=== PATIENT | female | born 1940 | race Caucasian/White ===

== ENCOUNTER 2020-06-19 08:36 | Outpatient (REF) | payer OTHER, SELFPAY ==
[2020-06-19 11:24] LABS: Estimated Average Glucose 117 mg/dL; Hemoglobin A1C 148.9388 umol/L; Hemoglobin A1c % 5.7 %
[2020-06-19 11:27] LABS: Glucose Urine UA NEG (NEG); Leukocyte Esterase Urine 1+ (NEG); Nitrite Urine NEG (NEG); PH 5.5 (5.0-8.0); Specific Gravity - Urine 1.025 (1.005-1.025); Urine Blood TRACE (NEG); Urine Ketones NEG (NEG); Urine Protein NEG (NEG-TRACE)
[2020-06-19 11:33] LABS: Appearance Urine HAZY; Color Urine YELLOW
[2020-06-19 11:38] LABS: Alanine Aminotransferase 39 U/L (0-31); Albumin Level 3.9 g/dL (3.5-5.0); Alkaline Phosphatase 61 U/L (39-117); Anion Gap 13 (12-20); Aspartate Amino Transferase 39 U/L (5-31); Bilirubin Total 0.6 mg/dL (0.0-1.0); Blood Urea Nitrogen 11 mg/dL (9-16); Calcium 8.8 mg/dL (8.4-10.2); Carbon Dioxide 25 mmol/L (22-29); Chloride 110 mmol/L (96-108); Estimated Glomerular Filt Rate > 60; Glucose Fasting 103 mg/dL (60-99); Potassium 4.2 mmol/l (3.3-5.1); Sodium 144 mmol/L (135-145); Total Protein 7.1 g/dL (6.5-8.0)
[2020-06-19 12:05] LABS: Mucus Urine 3+ /LPF; Squamous Epithelial Cell Urine 3+ /LPF
== END 2020-06-19 08:37 | disposition home or self-care (01) ==
LOC: HO.HMGCLDS 08:36
PROVIDERS: PCP Internal Medicine; Visit Provider Internal Medicine
DX: R73.9 Hyperglycemia, unspecified (principal); E55.9 Vitamin D deficiency, unspecified; R94.5 Abnormal results of liver function studies
CPT/HCPCS: 36415; 80053; 81001; 83036

== ENCOUNTER 2020-12-21 09:01 | Outpatient (REF) | payer OTHER, SELFPAY ==
[2020-12-21 12:00] LABS: Estimated Average Glucose 117 mg/dL; Hemoglobin A1c % 5.7 %
[2020-12-21 12:22] LABS: Alanine Aminotransferase 30 U/L (0-31); Albumin Level 3.9 g/dL (3.5-5.0); Alkaline Phosphatase 71 U/L (39-117); Anion Gap 12 (12-20); Aspartate Amino Transferase 29 U/L (5-31); Bilirubin Total 0.7 mg/dL (0.0-1.0); Blood Urea Nitrogen 14 mg/dL (9-16); Calcium 9.2 mg/dL (8.4-10.2); Carbon Dioxide 29 mmol/L (22-29); Chloride 107 mmol/L (96-108); Cholesterol 147 mg/dL; Estimated Glomerular Filt Rate > 60; Glucose Fasting 109 mg/dL (60-99); HDL Cholesterol 44 mg/dL; LDL Cholesterol Calculated 93 mg/dl; Potassium 4.7 mmol/L (3.3-5.1); Sodium 143 mmol/L (135-145); Total Protein 7.2 g/dL (6.5-8.0); Triglycerides 52 mg/dL
[2020-12-21 12:46] LABS: Thyroid Stimulating Hormone 1.89 uIU/mL (0.32-4.0)
== END 2020-12-21 09:02 | disposition home or self-care (01) ==
LOC: HO.HMGCLDS 09:01
PROVIDERS: PCP Internal Medicine; Visit Provider Internal Medicine
DX: E66.9 Obesity, unspecified (principal); E78.5 Hyperlipidemia, unspecified; K76.0 Fatty (change of) liver, not elsewhere classified; R49.0 Dysphonia; R73.9 Hyperglycemia, unspecified
CPT/HCPCS: 36415; 80053; 80061; 83036; 84443

== ENCOUNTER 2021-01-03 15:13 | Outpatient (REF) | payer OTHER, SELFPAY ==
[2021-01-03 15:36] LABS: COVID-19 Test Negative (Negative)
== END 2021-01-03 15:14 | disposition home or self-care (01) ==
LOC: HO.LAB 15:13
PROVIDERS: Visit Provider Internal Medicine
DX: Z20.822 Contact with and (suspected) exposure to COVID-19 (principal)
CPT/HCPCS: 36415; 87635; C9803

== ENCOUNTER 2021-06-27 08:02 | Outpatient (REF) | payer MEDICARE, SELFPAY ==
[2021-06-27 11:34] LABS: Hematocrit 44.4 % (37-47); Hemoglobin 14.9 g/dl (12.0-16.0); Mean Corpuscular HGB Conc 33.6 g/dl (31.0-35.0); Mean Corpuscular Hemoglobin 30.5 pg (27.0-33.0); Mean Corpuscular Volume 90.8 fL (80-98); Mean Platelet Volume 10.1 fL (9.4-12.3); Platelet Count 187 X10*3/uL (160-400); Red Blood Count 4.89 X10*6/uL (4.20-5.50); Red Cell Distribution Width 12.2 % (11.0-16.0); White Blood Count 5.1 X10*3/uL (4.8-10.8)
[2021-06-27 11:51] LABS: Alanine Aminotransferase 32 U/L (0-31); Albumin Level 3.8 g/dL (3.5-5.0); Alkaline Phosphatase 65 U/L (39-117); Anion Gap 12 (12-20); Aspartate Amino Transferase 29 U/L (5-31); Bilirubin Total 0.7 mg/dL (0.0-1.0); Blood Urea Nitrogen 12 mg/dL (9-16); Calcium 9.2 mg/dL (8.4-10.2); Carbon Dioxide 28 mmol/L (22-29); Chloride 107 mmol/L (96-108); Estimated Glomerular Filt Rate > 60; Glucose Fasting 112 mg/dL (60-99); Potassium 4.5 mmol/L (3.3-5.1); Sodium 142 mmol/L (135-145); Total Protein 7.1 g/dL (6.5-8.0)
== END 2021-06-27 08:03 | disposition home or self-care (01) ==
LOC: HO.HMGCLDS 08:02
PROVIDERS: PCP Internal Medicine; Visit Provider Internal Medicine
DX: R73.9 Hyperglycemia, unspecified (principal); E66.9 Obesity, unspecified
CPT/HCPCS: 36415; 80053; 85027

== ENCOUNTER 2022-01-01 07:42 | Outpatient (REF) | payer MEDICARE, SELFPAY ==
[2022-01-01 12:06] LABS: Alanine Aminotransferase 35 U/L (0-31); Albumin Level 3.7 g/dL (3.5-5.0); Alkaline Phosphatase 67 U/L (39-117); Anion Gap 10 (12-20); Aspartate Amino Transferase 30 U/L (5-31); Bilirubin Total 0.7 mg/dL (0.0-1.0); Blood Urea Nitrogen 12 mg/dL (9-16); Calcium 9.3 mg/dL (8.4-10.2); Carbon Dioxide 30 mmol/L (22-29); Chloride 107 mmol/L (96-108); Cholesterol 145 mg/dL; Estimated Glomerular Filt Rate > 60; Glucose Random 115 mg/dL (60-115); HDL Cholesterol 37 mg/dL; LDL Cholesterol Calculated 94 mg/dl; Potassium 4.5 mmol/L (3.3-5.1); Sodium 142 mmol/L (135-145); TSH reflex Free T4 2.08 uIU/mL (0.32-4.0); Total Protein 7.2 g/dL (6.5-8.0); Triglycerides 71 mg/dL; Vitamin D 25-OH Total 45.5 ng/mL (>30)
== END 2022-01-01 07:43 | disposition home or self-care (01) ==
LOC: HO.HMGCLDS 07:42
PROVIDERS: PCP Internal Medicine; Visit Provider Internal Medicine
DX: Z00.00 Encounter for general adult medical examination without abnormal findings (principal); E55.9 Vitamin D deficiency, unspecified; E78.5 Hyperlipidemia, unspecified; R73.9 Hyperglycemia, unspecified
CPT/HCPCS: 36415; 80053; 80061; 82306; 84443

== ENCOUNTER 2022-07-29 08:07 | Outpatient (REF) | payer OTHER, SELFPAY ==
[2022-07-29 11:37] LABS: MANUAL DIFF FLAG NO
[2022-07-29 11:42] LABS: Basophils Absolute Auto 0.1 X10*3/uL (0.0-0.2); Basophils Percent Auto 1.2 % (0-2); Eosinophils Absolute Auto 0.3 X10*3/uL (0.0-0.4); Eosinophils Percent Auto 5.4 % (0-4); Hematocrit 45.6 % (37.0-47.0); Lymphocytes Absolute Auto 2.1 X10*3/uL (1.2-4.9); Mean Corpuscular HGB Conc 32.9 g/dl (31.0-35.0); Mean Corpuscular Volume 91.2 fL (80.0-98.0); Mean Platelet Volume 10.2 fL (9.4-12.3); Monocytes Absolute Auto 0.4 X10*3/uL (0.1-1.2); Monocytes Percent Auto 6.3 % (2-11); Neutrophils Absolute Auto 2.9 x10*3/uL (2.0-8.3); Neutrophils Percent Auto 51.1 % (45-73); Platelet Count 172 X10*3/uL (160-400); Red Cell Distribution Width 12.4 % (11.0-16.0); White Blood Count 5.7 X10*3/uL (4.8-10.8)
[2022-07-29 11:54] LABS: Estimated Average Glucose 120 mg/dL; Hemoglobin A1c % 5.8 %
[2022-07-29 12:19] LABS: Alanine Aminotransferase 23 U/L (0-31); Albumin Level 3.9 g/dL (3.5-5.0); Alkaline Phosphatase 63 U/L (39-117); Anion Gap 10 (12-20); Aspartate Amino Transferase 24 U/L (5-31); Bilirubin Total 0.7 mg/dL (0.0-1.0); Blood Urea Nitrogen 16 mg/dL (9-16); Carbon Dioxide 30 mmol/L (22-29); Chloride 108 mmol/L (96-108); Cholesterol 168 mg/dL; Estimated Glomerular Filt Rate > 60; Glucose Fasting 117 mg/dL (60-99); HDL Cholesterol 38 mg/dL; LDL Cholesterol Calculated 113 mg/dl; Sodium 144 mmol/L (135-145); Total Protein 7.4 g/dL (6.5-8.0); Triglycerides 88 mg/dL; Vitamin D 25-OH Total 50.2 ng/mL (>30)
== END 2022-07-29 08:08 | disposition home or self-care (01) ==
LOC: HO.HMGCLDS 08:07
PROVIDERS: PCP Internal Medicine; Visit Provider Internal Medicine
DX: R73.9 Hyperglycemia, unspecified (principal); E78.5 Hyperlipidemia, unspecified; K76.0 Fatty (change of) liver, not elsewhere classified; E55.9 Vitamin D deficiency, unspecified
CPT/HCPCS: 36415; 80053; 80061; 82306; 83036; 85025

== ENCOUNTER 2022-08-12 14:44 | Outpatient (REF) | payer OTHER, SELFPAY ==
--- NOTE | ~2022-08-12 | MM_ITS ---
EXAMINATION: BONE DENSITOMETRY CLINICAL INDICATION: Asymptomatic menopausal state. COMPARISON: None (current study represents initial baseline exam). TECHNIQUE: Using a [employer] DXA System (software version: 13.1) manufactured by [employer], dual-energy x-ray absorptiometry was performed of the lumbar spine and left hip. The images are of good technical quality. Summary results are attached. FINDINGS: AP SPINE L1-L2 (excluding L3 and L4): The data of L1-L4 has been changed to exclude the L3 and L4 vertebral bodies, because degenerative changes at these levels may cause overestimation of lumbar spine density. BMD 0.991 g/cm2, Z-score -0.1, T-score -1.5, osteopenia. LEFT FEMUR, NECK: BMD 0.902 g/cm2, Z-score 0.9, T-score -1.0, normal. LEFT FEMUR, TOTAL: BMD 0.928 g/cm2, Z-score 1.0, T-score -0.6, normal. IDENTIFIED RISK FACTORS: Bilateral oophorectomy, hysterectomy, menopause. HISTORY OF FRACTURE: None listed. MEDICATIONS: Vitamin D. MM/XR DEXA axial skeleton IMPRESSION: 1. DIAGNOSIS: Osteopenia based on the lowest T-score value of -1.5 in the lumbar spine applying World Health Organization criteria. 2. 10-YEAR FRACTURE RISK PREDICTION, FRAX: Major osteoporotic fracture (clinical spine, forearm, hip or shoulder) 11.2%. Hip fracture 2.1%. 3. Treatment Recommendations: NOF guidelines recommend consideration for treatment in postmenopausal women and men age 50 and older presenting with the following: -A hip or vertebral (clinical or morphometric) fracture. -T-score less than or equal to -2.5 at the femoral neck or spine after appropriate evaluation to exclude secondary causes. -Low bone mass at the hip or spine and a 10-year fracture probability by FRAX of greater than or equal to 3% for hip fracture or greater than or equal to 20% for major osteoporotic fracture based on the [place] adapted WHO algorithm. 4. Other Recommendations: All treatment decisions require clinical judgment and consideration of individual patient factors, including patient preferences, comorbidities, previous drug use, risk factors not captured in the FRAX model (e.g. frailty, falls, vitamin D deficiency, increased bone turnover, interval significant decline in bone density) and possible under or overestimation of fracture risk by FRAX. Additional medical evaluation for secondary cause of low bone mineral density may be appropriate. FUTURE SCAN RECOMMENDATION: People with diagnosed cases of osteoporosis or at high risk for fracture should have regular bone mineral density tests. For patients eligible for Medicare, routine testing is allowed once every 2 years. The testing frequency can be increased to one year for patients who have rapidly progressing disease, those who are receiving or discontinuing medical therapy to restore bone mass, or have additional risk factors.
== END 2022-08-12 14:45 | disposition home or self-care (01) ==
LOC: HO.MAMMO 14:44
PROVIDERS: PCP Internal Medicine; Visit Provider Internal Medicine
DX: Z13.820 Encounter for screening for osteoporosis (principal); Z78.0 Asymptomatic menopausal state; E04.9 Nontoxic goiter, unspecified
CPT/HCPCS: 77080

== ENCOUNTER 2023-01-23 09:52 | Outpatient (REF) | payer OTHER, SELFPAY ==
--- NOTE | ~2023-01-23 | US_ITS ---
EXAMINATION: US THYROID CLINICAL INFORMATION: Nontoxic goiter, unspecified. COMPARISON: None available. TECHNIQUE: Linear transducer grayscale and color Doppler examination with attention to the region of the thyroid. FINDINGS: SIZE: Measurements of the thyroid lobes and nodules are given in sagittal, anteroposterior and transverse dimensions respectively. Right Thyroid Lobe: 4.7 x 2.1 x 1.7 cm, volume 8.8 mL. Parenchyma: The gland echotexture is homogeneous. Thyroid vascularity is normal. Left Thyroid Lobe: 3.8 x 1.4 x 1.5 cm, volume 4.2 mL. Parenchyma: The gland echotexture is homogeneous. Thyroid vascularity is normal. Isthmus: 0.4 cm in maximum AP dimension. Estimated total number of nodules greater than or equal to 1 cm: 1. Clinical Nursing Director nodules are described as follows: 1. Location: Left mid. Size: 0.5 x 0.3 x 0.5 cm, volume 0.04 mL. Nodule characteristics: Composition: Solid (2). Echogenicity: Isoechoic (1). Shape: Not taller than wide (0). Margins: Smooth (0). Echogenic Foci: None (0). ACR TI-RADS total points: 3 ACR TI-RADS category: 3 2. Location: Right mid. Size: 1.0 x 0.5 x 0.8 cm, volume 0.2 mL. Nodule characteristics: Composition: Spongiform (0). Echogenicity: Shape: Margins: Echogenic Foci: ACR TI-RADS total points: 0 ACR TI-RADS category: 1 3. Location: Right mid. Size: 0.8 x 0.7 x 0.8 cm, volume 0.2 mL. Nodule characteristics: Composition: Spongiform (0). Echogenicity: Shape: Margins: Echogenic Foci: ACR TI-RADS total points: 0 ACR TI-RADS category: 1 4. Location: Right mid. Size: 0.3 x 0.2 x 0.3 cm, volume 0.01 mL. Nodule characteristics: Composition: Spongiform (0). Echogenicity: Shape: Margins: Echogenic Foci: ACR TI-RADS total points: 0 ACR TI-RADS category: 1 NODES: No lymphadenopathy is seen in the tissue surrounding the thyroid gland. US/US thyroid IMPRESSION: Small bilateral thyroid nodules. According to TI RADS criteria, no fine-needle aspiration or ultrasound follow-up recommended. ACR TI-RADS RECOMMENDATION REFERENCE: Ultrasound-guided fine-needle aspiration, followup ultrasound, no further follow up. * TR1 (0 point) and TR2 (2 points): No FNA or follow up. * TR3 (3 points): FNA if more than or equal to 2.5 cm in maximum dimension, followup ultrasound in 1, 3 and 5 years if 1.5 to 2.4 cm in maximum dimension. * TR4 (4-6 points): FNA if more than or equal to 1.5 cm in maximum dimension, followup ultrasound in 1, 2, 3 and 5 years if 1 to 1.4 cm in maximum dimension. * TR5 (more than or equal to 7 points): FNA if more than or equal to 1 cm in maximum dimension, followup ultrasound every year for 5 years if 0.5 to 0.9 cm in maximum dimension. * TR3, TR4 or TR5 nodules that are below the size threshold for followup receive no follow up.
== END 2023-01-23 09:53 | disposition home or self-care (01) ==
LOC: HO.HMGCX 09:52
PROVIDERS: PCP Internal Medicine; Visit Provider Internal Medicine
DX: E04.9 Nontoxic goiter, unspecified (principal); R73.9 Hyperglycemia, unspecified; Z78.0 Asymptomatic menopausal state
CPT/HCPCS: 76536

== ENCOUNTER 2023-01-26 08:23 | Outpatient (REF) | payer OTHER, SELFPAY ==
[2023-01-26 11:52] LABS: Estimated Average Glucose 117 mg/dL; Hemoglobin A1c % 5.7 %
[2023-01-26 12:05] LABS: Alanine Aminotransferase 18 U/L (0-31); Albumin Level 3.8 g/dL (3.5-5.0); Alkaline Phosphatase 63 U/L (39-117); Anion Gap 9 (12-20); Aspartate Amino Transferase 19 U/L (5-31); Bilirubin Total 0.8 mg/dL (0.0-1.0); Blood Urea Nitrogen 15 mg/dL (9-16); Calcium 8.9 mg/dL (8.4-10.2); Carbon Dioxide 29 mmol/L (22-29); Chloride 108 mmol/L (96-108); Estimated Glomerular Filt Rate > 60; Glucose Fasting 111 mg/dL (60-99); Potassium 4.4 mmol/L (3.3-5.1); Sodium 142 mmol/L (135-145); Total Protein 7.2 g/dL (6.5-8.0)
[2023-01-26 12:21] LABS: TSH reflex Free T4 2.37 uIU/mL (0.32-4.0)
== END 2023-01-26 08:24 | disposition home or self-care (01) ==
LOC: HO.HMGCLDS 08:23
PROVIDERS: PCP Internal Medicine; Visit Provider Internal Medicine
DX: Z00.00 Encounter for general adult medical examination without abnormal findings (principal); R73.9 Hyperglycemia, unspecified
CPT/HCPCS: 36415; 80053; 83036; 84443

== ENCOUNTER 2023-07-02 08:51 | Outpatient (REF) | payer OTHER, SELFPAY ==
[2023-07-02 12:43] LABS: Vitamin D 25-OH Total 46.7 ng/mL (>30)
[2023-07-02 12:58] LABS: Folate 14.3 ng/mL (> or = 4.0); Vitamin B12 596 pg/mL (200-900)
[2023-07-06 12:44] LABS: Vitamin B1 13 nmol/L (8-30)
== END 2023-07-02 08:52 | disposition home or self-care (01) ==
LOC: HO.HMGCLDS 08:51
PROVIDERS: PCP Internal Medicine; Visit Provider Internal Medicine
DX: K12.1 Other forms of stomatitis (principal)
CPT/HCPCS: 36415; 82306; 82607; 82746; 84425

== ENCOUNTER 2023-08-04 09:13 | Outpatient (REF) | payer OTHER, SELFPAY ==
[2023-08-04 11:16] LABS: MANUAL DIFF FLAG NO
[2023-08-04 11:23] LABS: Basophils Absolute Auto 0.1 X10*3/uL (0.0-0.2); Basophils Percent Auto 1.1 % (0-2); Eosinophils Absolute Auto 0.3 X10*3/uL (0.0-0.4); Eosinophils Percent Auto 4.8 % (0-4); Hematocrit 43.5 % (37.0-47.0); Hemoglobin 14.4 g/dl (12.0-16.0); Imm Gran Abs Auto 0.01 X10*3/uL (0.00-0.03); Imm Gran Pct Auto 0.2 % (0.0-0.4); Lymphocytes Absolute Auto 1.7 X10*3/uL (1.2-4.9); Lymphocytes Percent Auto 32.2 % (20-40); Mean Corpuscular HGB Conc 33.1 g/dl (31.0-35.0); Mean Corpuscular Hemoglobin 29.7 pg (27.0-33.0); Mean Corpuscular Volume 89.7 fL (80.0-98.0); Mean Platelet Volume 9.9 fL (9.4-12.3); Monocytes Absolute Auto 0.4 X10*3/uL (0.1-1.2); Monocytes Percent Auto 6.9 % (2-11); Neutrophils Absolute Auto 2.9 x10*3/uL (2.0-8.3); Neutrophils Percent Auto 54.8 % (45-73); Platelet Count 162 X10*3/uL (160-400); Red Blood Count 4.85 X10*6/uL (4.20-5.50); Red Cell Distribution Width 12.4 % (11.0-16.0); White Blood Count 5.3 X10*3/uL (4.8-10.8)
[2023-08-04 11:29] LABS: Estimated Average Glucose 126 mg/dL
[2023-08-04 11:59] LABS: Alanine Aminotransferase 20 U/L (0-31); Albumin Level 3.6 g/dL (3.5-5.0); Alkaline Phosphatase 64 U/L (39-117); Anion Gap 6 (12-20); Aspartate Amino Transferase 21 U/L (5-31); Bilirubin Total 0.6 mg/dL (0.0-1.0); Blood Urea Nitrogen 13 mg/dL (9-16); Calcium 9.1 mg/dL (8.4-10.2); Carbon Dioxide 30 mmol/L (22-29); Chloride 108 mmol/L (96-108); Cholesterol 140 mg/dL (<200); Estimated Glomerular Filt Rate > 60; Glucose Fasting 112 mg/dL (60-99); HDL Cholesterol 34 mg/dL (>40); LDL Cholesterol Calculated 94 mg/dL (<100); Potassium 4.1 mmol/L (3.3-5.1); Sodium 140 mmol/L (135-145); Total Protein 7.2 g/dL (6.5-8.0); Triglycerides 63 mg/dL (<150)
== END 2023-08-04 09:14 | disposition home or self-care (01) ==
LOC: HO.HMGCLDS 09:13
PROVIDERS: PCP Internal Medicine; Visit Provider Internal Medicine
DX: E55.9 Vitamin D deficiency, unspecified (principal); R73.9 Hyperglycemia, unspecified; E78.5 Hyperlipidemia, unspecified
CPT/HCPCS: 36415; 80053; 80061; 83036; 85025

== ENCOUNTER 2023-08-11 09:25 | Outpatient (AMB) | payer OTHER, SELFPAY ==
[2023-08-11 09:28] VITALS: BP 130/78; PULSE 73; O2SAT 97; BMI 29.8
--- NOTE | 2023-08-11 09:28 | A.OFFPC_ITS ---
Vital Signs 08/11/23 09:28 Height 5 ft 4 in Weight 173 lb 8 oz BMI 29.8 BP 130/78 Blood Pressure Location Lt brachial Position Sitting Pulse 73 Pulse Source Pulse Oximeter Pulse Oximetry (%) 97 Oxygen Delivery Method Room Air Intake Visit Reasons: Annual Physical resched Intake Note: Pt is here today for PE. Pt states that she has been having problem with dry mouth and her tongue gets sore. Allergies seafood Allergy (Unknown, Uncoded 08/11/23 09:31) Unknown Medication List - Last Reconciled 08/11/23 by Jacqueline Diamond MD cholecalciferol (vitamin D3) 25 mcg PO DAILY hydrocortisone valerate 0.2% 1 appl topical QID PRN metronidazole 0.75% 1 appl topical DAILY PRN propylene glycol 0.6% (Systane Balance) 1 drp ophthalmic (eye) DAILY PRN vitamins A,C,L-evei-rhhrsc 4,296 mcg-226 mg-90 mg (PreserVision AREDS) 1 cap PO DAILY Tobacco use date assessed: 08/11/23 Fall risk assessment: No Falls in past year Last assessed Fall Risk: 08/11/23 Dental Screening Dental Screen Date: 08/11/23 Did you have a dental visit in the last 12 months?: Yes Did you have a dental problem in the last 6 months where you did not have access to dental care?: No Was dental information given to patient?: Patient has dentist HPI Annual Physical resched HPI Details Pt presents for PE. PFSH Medical History Vitamin D deficiency Dry mouth Annual physical exam Hoarseness Obesity Hyperlipidemia Nonalcoholic hepatosteatosis Hyperglycemia Osteoarthritis Tinnitus Surgical History H/O colonoscopy History of hysterectomy Hx of cholecystectomy Family History Father Cancer Mother Lymphoma Cancer Brother Oral cancer Sister Myeloma Breast cancer Brother Heart problem Cancer Housing: Apartment Alcohol intake: current Alcohol intake frequency: holidays/special occasions only Patient Tobacco Use Status: Former Tobacco user e-Cigarette/Vaping Use: Never Used Current occupational status: retired Cognitive needs: No Hearing needs: No Vision needs: Yes Questionnaire Thrive Questionnaire Date Thrive assessed: 02/03/23 AUDIT C Alcohol Use Questionnaire (AUDIT-C) 1. How often do you have a drink containing alcohol?: Monthly or less 2. How many drinks containing alcohol do you have on a typical day when you are drinking?: 1 or 2 3. How often do you have six or more drinks on one occasion?: Never Total Score: 1 BISI-7 AMB Questionnaire BISI-7 Date BISI - 7 assessed: 02/03/23 Source: Developed by Drs. Jean Tineo, Jannette Portillo, Devonte Edmonds and colleagues, with an educational callie from [employer]. Review of Systems Const All systems reviewed & are unremarkable except as noted in HPI and below Reports no additional complaints Eyes Reports no additional complaints ENT Reports no additional complaints Card Reports no additional complaints Resp Reports no additional complaints GI Reports no additional complaints Reports no additional complaints Physical exam (Primary Care) Vital Signs: Last Vital Signs Pulse 73 08/11/23 09:28 BP 130/78 08/11/23 09:28 Pulse Ox 97 08/11/23 09:28 Oxygen Delivery Method Room Air 08/11/23 09:28 BMI result Body Mass Index 29.8 Tobacco/Smoking Status: Tobacco use Status Tobacco use date assessed 08/11/23 08/11/23 09:35 Patient Tobacco Use Status Former Tobacco user 08/11/23 09:35 e-Cigarette/Vaping Use Never Used 08/11/23 09:35 Thrive Assessment: Date of Thrive Assessment Date Thrive assessed 02/03/23 08/11/23 09:35 Const General: no acute distress [facility] Head: Yes normal to inspection Ears: hearing grossly normal bilaterally General nose exam: Normal external nose present Face and sinus: Yes normal facial exam Mouth: Normal oral and palatal mucosa present Teeth and gingiva: dentition normal Throat: Yes posterior oropharynx normal Eyes General: appearance normal, both eyes and all related structures Neck Neck: Yes no lymphadenopathy and Yes supple Resp Effort & Inspection: normal respiratory effort Auscultation: clear to auscultation bilaterally Cardio Rhythm: regular rhythm Heart sounds: S1 normal heart sound present and S2 normal heart sound present GI Inspection: Yes normal to inspection Palpation (GI): Soft to palpation Percussion: Yes normal to percussion Auscultation: normal bowel sounds Assessment and Plan Assessment & Plan (1) Hyperglycemia: Code(s): R73.9 - Hyperglycemia, unspecified Plan: A1C is 6.0, ADA diet, increase exercise, (2) Hyperlipidemia: Code(s): E78.5 - Hyperlipidemia, unspecified Plan: cont low cholesterol diet (3) Annual physical exam: Code(s): Z00.00 - Encounter for general adult medical examination without abnormal findings Plan: well balanced diet, regular exercise discussed, Orders: Orders Comprehensive [place]. Panel Fast 6 Months E78.5 - Hyperlipidemia, unspecified, R73.9 - Hyperglycemia, unspecified Hemoglobin A1c 6 Months E78.5 - Hyperlipidemia, unspecified, R73.9 - Hyperglycemia, unspecified Coding Level of Care Code Est Pt Prev Care >65y(22068) Diagnoses Hyperglycemia R73.9 Hyperlipidemia E78.5 Annual physical exam Z00.00
== END 2023-08-11 10:15 | disposition home or self-care (01) ==
PROVIDERS: PCP Internal Medicine; Visit Provider Internal Medicine
DX: R73.9 Hyperglycemia, unspecified (principal); E78.5 Hyperlipidemia, unspecified; Z00.00 Encounter for general adult medical examination without abnormal findings
CPT/HCPCS: 99397

== ENCOUNTER 2024-01-26 08:07 | Outpatient (REF) | payer OTHER, SELFPAY ==
[2024-01-26 11:18] LABS: Estimated Average Glucose 126 mg/dL
[2024-01-26 11:21] LABS: Alanine Aminotransferase 24 U/L (0-31); Albumin Level 3.8 g/dL (3.5-5.0); Alkaline Phosphatase 64 U/L (39-117); Anion Gap 11 (12-20); Aspartate Amino Transferase 23 U/L (5-31); Bilirubin Total 0.7 mg/dL (0.0-1.0); Blood Urea Nitrogen 12 mg/dL (9-16); Calcium 9.4 mg/dL (8.4-10.2); Carbon Dioxide 27 mmol/L (22-29); Chloride 107 mmol/L (96-108); Estimated Glomerular Filt Rate > 60; Glucose Fasting 117 mg/dL (60-99); Potassium 4.3 mmol/L (3.3-5.1); Sodium 141 mmol/L (135-145); Total Protein 7.4 g/dL (6.5-8.0)
== END 2024-01-26 08:08 | disposition home or self-care (01) ==
LOC: HO.HMGCLDS 08:07
PROVIDERS: PCP Internal Medicine; Visit Provider Internal Medicine
DX: R73.9 Hyperglycemia, unspecified (principal); E78.5 Hyperlipidemia, unspecified
CPT/HCPCS: 36415; 80053; 83036

== ENCOUNTER 2024-02-02 10:48 | Outpatient (AMB) | payer OTHER, SELFPAY ==
[2024-02-02 10:49] VITALS: BP 126/74; PULSE 70; O2SAT 97; BMI 30.2
--- NOTE | 2024-02-02 10:49 | MHC.PC.OV ---
Vital Signs 02/02/24 10:49 Height 5 ft 4 in Weight 176 lb BMI 30.2 BP 126/74 Blood Pressure Location Rt brachial Position Sitting Pulse 70 Pulse Source Pulse Oximeter Pulse Oximetry (%) 97 Oxygen Delivery Method Room Air Intake Visit Reasons: 6 month follow up Intake Note: Pt is here today for 6 months follow up visit on labs. Allergies seafood Allergy (Unknown, Uncoded 02/02/24 10:51) Unknown Medication List - Last Reconciled 02/02/24 by Jacqueline Diamond MD cholecalciferol (vitamin D3) 25 mcg PO DAILY hydrocortisone valerate 0.2% 1 appl topical QID PRN lysine (L-Lysine) 100 mg PO DAILY PRN metronidazole 0.75% 1 appl topical DAILY PRN propylene glycol 0.6% (Systane Balance) 1 drp ophthalmic (eye) DAILY PRN vitamins A,C,U-sckp-tgezeb 4,296 mcg-226 mg-90 mg (PreserVision AREDS) 1 cap PO DAILY Tobacco use date assessed: 02/02/24 Fall risk assessment: No Falls in past year Last assessed Fall Risk: 02/02/24 Dental Screening Dental Screen Date: 02/02/24 Did you have a dental visit in the last 12 months?: Yes Did you have a dental problem in the last 6 months where you did not have access to dental care?: No Was dental information given to patient?: Patient has dentist HPI 6 month follow up HPI Details Pt presents for f/u diet controlled hyperglycemia. Pt c/o persistent dry mouth and not healing lesion on the tongue. She follows up with a dentist and was referred to oral surgeon. [facility] Medical History Vitamin D deficiency Dry mouth Annual physical exam Hoarseness Obesity Hyperlipidemia Nonalcoholic hepatosteatosis Hyperglycemia Osteoarthritis Tinnitus Surgical History H/O colonoscopy History of hysterectomy Hx of cholecystectomy Family History Father Cancer Mother Lymphoma Cancer Brother Oral cancer Sister Myeloma Breast cancer Brother Heart problem Cancer Social History Housing: Apartment Alcohol intake: current Alcohol intake frequency: holidays/special occasions only Patient Tobacco Use Status: Former Tobacco user e-Cigarette/Vaping Use: Never Used service: No Current occupational status: retired Cognitive needs: No Hearing needs: No Vision needs: Yes Questionnaire PHQ-9 Over the last 2 weeks, how often have you been bothered by any of the following problems? 1. Little interest or pleasure in doing things: not at all 2. Feeling down, depressed, or hopeless: not at all 3. Trouble falling or staying asleep, or sleeping too much: not at all 4. Feeling tired or having little energy: not at all 5. Poor appetite or overeating: not at all 6. Feeling bad about yourself - or that you are a failure or have let yourself or your family down: not at all 7. Trouble concentrating on things, such as reading the newspaper or watching television: not at all 8. Moving or speaking so slowly that other people could have noticed. Or the opposite - being so fidgety or restless that you have been moving around a lot more than usual: not at all 9. Thoughts that you would be better off or of hurting yourself in some way: not at all Total score: 0 Depression Screening Interpretation: Negative Depression Screening Done: Yes Source: Developed by Drs. Jean Tineo, Jannette Portillo, Devonte Edmonds and colleagues, with an educational callie from [email or web address]. Thrive Questionnaire Date Thrive assessed: 02/02/24 I am a: Patient What is your living situation today?: I have a steady place to live Within the past 12 months, did the food you bought not last and you didn't have the money to get more?: Never true Within the past 12 months, did you worry whether your food would run out before you got money to buy more?: Never true Do you have trouble paying for medicines?: No Do you have trouble getting transportation to medical appointments?: No Do you have trouble paying your heating and electricity bill?: No Do you have trouble taking care of your child, family member or friend?: No Do you have trouble with day-to-day activities such as bathing, preparing meals, shopping, managing finances, etc.?: No Are you currently unemployed and looking for a job?: No Are you interested in more education?: No Please select the resources that you would like help with: None THRIVE Score: 0 AUDIT C Alcohol Use Questionnaire (AUDIT-C) 1. How often do you have a drink containing alcohol?: Monthly or less 2. How many drinks containing alcohol do you have on a typical day when you are drinking?: 1 or 2 3. How often do you have six or more drinks on one occasion?: Never Total Score: 1 BISI-7 AMB Questionnaire BISI-7 Date BISI - 7 assessed: 02/02/24 Feeling nervous, anxious, or on edge: 0 = Not at all Not being able to stop or control worryin = Not at all Worrying too much about different things: 0 = Not at all Trouble relaxin = Not at all Being so restless that it is hard to sit still: 0 = Not at all Becoming easily annoyed or irritable: 0 = Not at all Feeling afraid as if something awful might happen: 0 = Not at all Total BISI-7 score (0-4 normal; 5-9 mild; 10-14 moderate; 15-21 severe): 0 Source: Developed by Drs. Jean Tineo, Jannette Portillo, Devonte Edmonds and colleagues, with an educational callie from [email or web address]. Review of Systems Const All systems reviewed & are unremarkable except as noted in HPI and below Eyes Reports no additional complaints ENT Reports no additional complaints Card Reports no additional complaints Resp Reports no additional complaints GI Reports no additional complaints Reports no additional complaints Physical exam (Primary Care) Vital Signs: Last Vital Signs Pulse 70 02/02/24 10:49 BP 126/74 02/02/24 10:49 Pulse Ox 97 02/02/24 10:49 Oxygen Delivery Method Room Air 02/02/24 10:49 BMI result Body Mass Index 30.2 Tobacco/Smoking Status: Tobacco use Status Tobacco use date assessed 02/02/24 02/02/24 10:53 Patient Tobacco Use Status Former Tobacco user 02/02/24 10:53 e-Cigarette/Vaping Use Never Used 02/02/24 10:49 PHQ-9: PHQ-9 Score PHQ-9: Total score 0 02/02/24 11:34 Depression Screening Interpretation: Negative Thrive Assessment: Date of Thrive Assessment Date Thrive assessed 02/02/24 02/02/24 11:05 Const General: no acute distress HENMT Ears: hearing grossly normal bilaterally Mouth: tongue abnormal atrophic and with lesion noted (erythma with shallow ulcer) Throat: Yes posterior oropharynx normal Eyes General: appearance normal, both eyes and all related structures Neck Neck: Yes supple Resp Effort & Inspection: normal respiratory effort Auscultation: clear to auscultation bilaterally Cardio Rhythm: regular rhythm Heart sounds: S1 normal heart sound present and S2 normal heart sound present GI Inspection: Yes normal to inspection Palpation (GI): Soft to palpation Percussion: Yes normal to percussion Auscultation: normal bowel sounds Assessment and Plan Assessment & Plan (1) Hyperglycemia: Code(s): R73.9 - Hyperglycemia, unspecified Plan: A1c 6.0%, cont ADA diet, exercise, weight loss (2) Hyperlipidemia: Code(s): E78.5 - Hyperlipidemia, unspecified Plan: cont low cholesterol diet, increase exercise, weight loss discussed (3) Mouth ulcer: Comment: f/u by dentist, referred to oral surgeon Code(s): K12.1 - Other forms of stomatitis Orders: Orders Complete Blood Count Auto Diff 6 Months E55.9 - Vitamin D deficiency, unspecified, E78.5 - Hyperlipidemia, unspecified, R73.9 - Hyperglycemia, unspecified Comprehensive [place]. Panel Fast 6 Months E55.9 - Vitamin D deficiency, unspecified, E78.5 - Hyperlipidemia, unspecified, R73.9 - Hyperglycemia, unspecified Lipid Panel 6 Months E55.9 - Vitamin D deficiency, unspecified, E78.5 - Hyperlipidemia, unspecified, R73.9 - Hyperglycemia, unspecified Microalbumin, Random (w Creat) 6 Months E55.9 - Vitamin D deficiency, unspecified, E78.5 - Hyperlipidemia, unspecified, R73.9 - Hyperglycemia, unspecified Vitamin D 25-OH Total 6 Months E55.9 - Vitamin D deficiency, unspecified, E78.5 - Hyperlipidemia, unspecified, R73.9 - Hyperglycemia, unspecified Hemoglobin A1c 6 Months E55.9 - Vitamin D deficiency, unspecified, E78.5 - Hyperlipidemia, unspecified, R73.9 - Hyperglycemia, unspecified Coding Level of Care Code Est Pt Level 3 (27957) Diagnoses Hyperglycemia R73.9 Hyperlipidemia E78.5 Mouth ulcer K12.1
== END 2024-02-02 12:43 | disposition home or self-care (01) ==
PROVIDERS: PCP Internal Medicine; Visit Provider Internal Medicine
DX: R73.9 Hyperglycemia, unspecified (principal); E78.5 Hyperlipidemia, unspecified; K12.1 Other forms of stomatitis
CPT/HCPCS: 99213

== ENCOUNTER 2024-08-26 09:27 | Outpatient (REF) | payer OTHER, SELFPAY ==
[2024-08-26 13:11] LABS: MANUAL DIFF FLAG NO
[2024-08-26 13:31] LABS: Basophils Absolute Auto 0.1 X10*3/uL (0.0-0.2); Basophils Percent Auto 1.4 % (0-2); Eosinophils Absolute Auto 0.3 X10*3/uL (0.0-0.4); Hematocrit 46.3 % (37.0-47.0); Hemoglobin 15.3 g/dl (12.0-16.0); Imm Gran Abs Auto 0.01 X10*3/uL (0.00-0.03); Imm Gran Pct Auto 0.2 % (0.0-0.4); Lymphocytes Absolute Auto 1.5 X10*3/uL (1.2-4.9); Lymphocytes Percent Auto 28.2 % (20-40); Mean Corpuscular Hemoglobin 30.1 pg (27.0-33.0); Mean Corpuscular Volume 91.1 fL (80.0-98.0); Mean Platelet Volume 10.2 fL (9.4-12.3); Monocytes Absolute Auto 0.4 X10*3/uL (0.1-1.2); Monocytes Percent Auto 6.8 % (2-11); Neutrophils Percent Auto 58.4 % (45-73); Platelet Count 164 X10*3/uL (160-400); Red Blood Count 5.08 X10*6/uL (4.20-5.50); Red Cell Distribution Width 12.6 % (11.0-16.0); White Blood Count 5.2 X10*3/uL (4.8-10.8)
[2024-08-26 13:44] LABS: Creatinine Urine 73.35 mg/dL; Microalbum/Creatinine Ratio Ur 17.7 ug/mg cr (<30)
[2024-08-26 14:03] LABS: Estimated Average Glucose 126 mg/dL; Hemoglobin A1C 205.8241 umol/L; Total Hemoglobin (HGBA1C) 4931.6219 umol/L
[2024-08-26 14:05] LABS: Alanine Aminotransferase 22 U/L (0-31); Albumin Level 3.8 g/dL (3.5-5.0); Alkaline Phosphatase 62 U/L (39-117); Anion Gap 8 (12-20); Aspartate Amino Transferase 31 U/L (5-31); Bilirubin Total 0.6 mg/dL (0.0-1.0); Blood Urea Nitrogen 12 mg/dL (9-16); Calcium 9.5 mg/dL (8.4-10.2); Carbon Dioxide 29 mmol/L (22-29); Chloride 108 mmol/L (96-108); Cholesterol 141 mg/dL (<200); Estimated Glomerular Filt Rate > 60; Glucose Fasting 122 mg/dL (60-99); HDL Cholesterol 37 mg/dL (>40); LDL Cholesterol Calculated 89 mg/dL (<100); Potassium 4.7 mmol/L (3.3-5.1); Sodium 140 mmol/L (135-145); Total Protein 7.6 g/dL (6.5-8.0); Triglycerides 76 mg/dL (<150)
[2024-08-26 14:09] LABS: Vitamin D 25-OH Total 55.9 ng/mL (>30)
== END 2024-08-26 09:28 | disposition home or self-care (01) ==
LOC: HO.HMGCLDS 09:27
PROVIDERS: PCP Internal Medicine; Visit Provider Internal Medicine
DX: R73.9 Hyperglycemia, unspecified (principal); E78.5 Hyperlipidemia, unspecified; E55.9 Vitamin D deficiency, unspecified
CPT/HCPCS: 36415; 80053; 80061; 82043; 82306; 82570; 83036; 85025

== ENCOUNTER 2024-09-02 11:19 | Outpatient (AMB) | payer MEDICARE, SELFPAY ==
[2024-09-02 11:20] VITALS: BP 130/80; PULSE 74; O2SAT 97; BMI 30.9
--- NOTE | 2024-09-02 11:20 | MHC.PC.OV ---
Vital Signs 09/02/24 11:20 Height 5 ft 4 in Weight 180 lb BMI 30.9 BP 130/80 Blood Pressure Location Lt brachial Position Sitting Pulse 74 Pulse Source Pulse Oximeter Pulse Oximetry (%) 97 Oxygen Delivery Method Room Air Intake Visit Reasons: Annual Physical - see comments Intake Note: Pt is here today for PE. Allergies seafood Allergy (Unknown, Uncoded 09/02/24 11:20) Unknown Medication List - Last Reconciled 09/02/24 by Jacqueline Diamond MD cholecalciferol (vitamin D3) 25 mcg PO DAILY hydrocortisone valerate 0.2% 1 appl topical QID PRN metronidazole 0.75% 1 appl topical DAILY propylene glycol 0.6% (Systane Balance) 1 drp ophthalmic (eye) DAILY PRN vitamins A,C,O-kvvu-qfngmo 4,296 mcg-226 mg-90 mg (PreserVision AREDS) 1 cap PO DAILY Tobacco use date assessed: 09/02/24 Fall risk assessment: No Falls in past year Last assessed Fall Risk: 09/02/24 Dental Screening Dental Screen Date: 09/02/24 Did you have a dental visit in the last 12 months?: Yes Did you have a dental problem in the last 6 months where you did not have access to dental care?: No Was dental information given to patient?: Patient has dentist HPI Annual Physical - see comments HPI Details Pt presents for PE. PFSH Medical History Vitamin D deficiency Dry mouth Annual physical exam Hoarseness Obesity Hyperlipidemia Nonalcoholic hepatosteatosis Hyperglycemia Osteoarthritis Tinnitus Surgical History H/O colonoscopy History of hysterectomy Hx of cholecystectomy Family History Father Cancer Mother Lymphoma Cancer Brother Oral cancer Sister Myeloma Breast cancer Brother Heart problem Cancer Brother Lung cancer Heart problem Social History Housing: Apartment Alcohol intake: current Alcohol intake frequency: holidays/special occasions only Patient Tobacco Use Status: Former Tobacco user e-Cigarette/Vaping Use: Never Used service: No Current occupational status: retired Cognitive needs: No Hearing needs: No Vision needs: Yes Questionnaire PHQ-9 Over the last 2 weeks, how often have you been bothered by any of the following problems? 1. Little interest or pleasure in doing things: not at all 2. Feeling down, depressed, or hopeless: not at all 3. Trouble falling or staying asleep, or sleeping too much: not at all 4. Feeling tired or having little energy: not at all 5. Poor appetite or overeating: not at all 6. Feeling bad about yourself - or that you are a failure or have let yourself or your family down: not at all 7. Trouble concentrating on things, such as reading the newspaper or watching television: not at all 8. Moving or speaking so slowly that other people could have noticed. Or the opposite - being so fidgety or restless that you have been moving around a lot more than usual: not at all 9. Thoughts that you would be better off or of hurting yourself in some way: not at all Total score: 0 Depression Screening Interpretation: Negative Depression Screening Done: Yes 25642 - PHQ-9 Billing: Yes Source: Developed by Drs. Jean Tineo, Jannette Portillo, Devonte Edmonds and colleagues, with an educational callie from [employer]. Thrive Questionnaire Date Thrive assessed: 09/02/24 I am a: Patient What is your living situation today?: I have a steady place to live Within the past 12 months, did the food you bought not last and you didn't have the money to get more?: Never true Within the past 12 months, did you worry whether your food would run out before you got money to buy more?: Never true Do you have trouble paying for medicines?: No Do you have trouble getting transportation to medical appointments?: No Do you have trouble paying your heating and electricity bill?: No Do you have trouble taking care of your child, family member or friend?: No Do you have trouble with day-to-day activities such as bathing, preparing meals, shopping, managing finances, etc.?: No Are you currently unemployed and looking for a job?: No Are you interested in more education?: No Please select the resources that you would like help with: None Currently or been in a relationship where the following occur: No concerns reported THRIVE Score: 0 AUDIT C Alcohol Use Questionnaire (AUDIT-C) 1. How often do you have a drink containing alcohol?: 2-4 times a month 2. How many drinks containing alcohol do you have on a typical day when you are drinking?: 1 or 2 3. How often do you have six or more drinks on one occasion?: Never Total Score: 2 BISI-7 AMB Questionnaire BISI-7 Date BISI - 7 assessed: 09/02/24 Feeling nervous, anxious, or on edge: 0 = Not at all Not being able to stop or control worryin = Not at all Worrying too much about different things: 0 = Not at all Trouble relaxin = Not at all Being so restless that it is hard to sit still: 0 = Not at all Becoming easily annoyed or irritable: 0 = Not at all Feeling afraid as if something awful might happen: 0 = Not at all Total BISI-7 score (0-4 normal; 5-9 mild; 10-14 moderate; 15-21 severe): 0 Source: Developed by Drs. Jean Tineo, Jannette Portillo, Devonte Edmonds and colleagues, with an educational callie from [employer]. Review of Systems Const All systems reviewed & are unremarkable except as noted in HPI and below Eyes Reports no additional complaints ENT Reports no additional complaints Card Reports no additional complaints Resp Reports no additional complaints GI Reports no additional complaints Reports no additional complaints Musc Reports no additional complaints Physical exam (Primary Care) Vital Signs: Last Vital Signs Pulse 74 09/02/24 11:20 BP 130/80 09/02/24 11:20 Pulse Ox 97 09/02/24 11:20 Oxygen Delivery Method Room Air 09/02/24 11:20 BMI result Body Mass Index 30.9 Tobacco/Smoking Status: Tobacco use Status Tobacco use date assessed 09/02/24 09/02/24 11:21 Patient Tobacco Use Status Former Tobacco user 09/02/24 11:21 e-Cigarette/Vaping Use Never Used 09/02/24 11:21 PHQ-9: PHQ-9 Score PHQ-9: Total score 0 09/02/24 11:29 Depression Screening Interpretation: Negative Thrive Assessment: Date of Thrive Assessment Date Thrive assessed 09/02/24 09/02/24 11:21 Currently or been in a relationship where the following occur: No concerns reported Const General: no acute distress HENMT Head: Yes normal to inspection Ears: hearing grossly normal bilaterally Face and sinus: Yes normal facial exam Throat: Yes posterior oropharynx normal Eyes General: appearance normal, both eyes and all related structures Neck Neck: Yes no meningeal signs and Yes supple Resp Effort & Inspection: normal respiratory effort Auscultation: clear to auscultation bilaterally Cardio Rhythm: regular rhythm Heart sounds: S1 normal heart sound present and S2 normal heart sound present GI Inspection: Yes normal to inspection Palpation (GI): Soft to palpation Percussion: Yes normal to percussion Auscultation: normal bowel sounds Neuro General: no meningeal signs Coding Level of Care Code Est Pt Prev Care >65y(04435) Diagnoses Hyperglycemia R73.9 Obesity E66.9 Annual physical exam Z00.00 Vitamin D deficiency E55.9 Additional Codes PHQ-9 - 82581 - PHQ-9 Billing: Yes ([id number]) Assessment & Plan Assessment & Plan (1) Hyperglycemia: Code(s): R73.9 - Hyperglycemia, unspecified Category: Medical Plan: A1C IS 6.0, ADA diet increase exercise weight loss discussed with the patient. Recheck A1c in 6 months (2) Obesity: Code(s): E66.9 - Obesity, unspecified Category: Medical Plan: Decrease caloric intake increase physical activity discussed with the patient (3) Annual physical exam: Code(s): Z00.00 - Encounter for general adult medical examination without abnormal findings Category: Medical Plan: Well-balanced diet regular physical activity discussed with the patient (4) Vitamin D deficiency: Code(s): E55.9 - Vitamin D deficiency, unspecified Category: Medical Plan: Continue vitamin-D supplement Orders: Orders Comprehensive Plato. Panel Fast 6 Months E66.9 - Obesity, unspecified, R73.9 - Hyperglycemia, unspecified Hemoglobin A1c 6 Months E66.9 - Obesity, unspecified, R73.9 - Hyperglycemia, unspecified TSH reflex Free T4 6 Months E66.9 - Obesity, unspecified, R73.9 - Hyperglycemia, unspecified Medications: Changed From metronidazole 0.75% 1 appl topical DAILY PRN To metronidazole 0.75% 1 appl topical DAILY 45 grams 1RF
== END 2024-09-02 12:31 | disposition home or self-care (01) ==
PROVIDERS: PCP Internal Medicine; Visit Provider Internal Medicine
DX: Z00.00 Encounter for general adult medical examination without abnormal findings (principal); R73.9 Hyperglycemia, unspecified; Z68.30 Body mass index [BMI] 30.0-30.9, adult; E66.9 Obesity, unspecified; E55.9 Vitamin D deficiency, unspecified

== ENCOUNTER → 2024-09-02 11:19 | Outpatient (BNVA) | payer OTHER, SELFPAY | PROVIDERS: PCP Internal Medicine; Visit Provider Internal Medicine | DX: Z00.00 Encounter for general adult medical examination without abnormal findings (principal); R73.9 Hyperglycemia, unspecified; E66.9 Obesity, unspecified; E55.9 Vitamin D deficiency, unspecified; Z68.30 Body mass index [BMI] 30.0-30.9, adult; Z87.891 Personal history of nicotine dependence | CPT/HCPCS: 96127; 99397 ==

== ENCOUNTER 2024-10-13 13:33 | Outpatient (AMB) | payer MEDICARE, SELFPAY ==
--- NOTE | 2024-10-13 13:35 | MHC.OFFWIV ---
Intake Vital Signs 10/13/24 13:36 Weight 179 lb BP 116/70 Blood Pressure Location Rt brachial Position Sitting Pulse 80 Pulse Source Pulse Oximeter Temp 98 F Temp Source Oral Pulse Oximetry (%) 97 Oxygen Delivery Method Room Air Intake Visit Reasons: EP-chest congestion, cough Intake Note: Patient here for cough and chest congestion that started Thursday. Patient Tobacco Use Status: Former Tobacco user Allergies seafood Allergy (Unknown, Uncoded 10/13/24 13:37) Unknown HPI HPI Comments History of Present Illness Details 83 y/o female patient who presents to the walk in clinic with c/o Cough and chest congestion since Thursday. [facility] Medical History (Updated 10/13/24 @ 14:32 by Kellie Conn NP) Cough Wheezing on auscultation Vitamin D deficiency Dry mouth Annual physical exam Hoarseness Obesity Nonalcoholic hepatosteatosis Hyperglycemia Osteoarthritis Tinnitus Surgical History H/O colonoscopy History of hysterectomy Hx of cholecystectomy Family History Father Cancer Mother Lymphoma Cancer Brother Oral cancer Sister Myeloma Breast cancer Brother Heart problem Cancer Brother Lung cancer Heart problem Social History Housing: Apartment Alcohol intake: current Alcohol intake frequency: holidays/special occasions only Patient Tobacco Use Status: Former Tobacco user e-Cigarette/Vaping Use: Never Used service: No Current occupational status: retired Cognitive needs: No Hearing needs: No Vision needs: Yes Review of Systems Const All systems reviewed & are unremarkable except as noted in HPI and below Physical Exam Vital Signs: Last Vital Signs Temp 98 F 10/13/24 13:36 Pulse 80 10/13/24 13:36 BP 116/70 10/13/24 13:36 Pulse Ox 97 10/13/24 13:36 Oxygen Delivery Method Room Air 10/13/24 13:36 Const General: cooperative and no acute distress Nutritional Appearance: overweight Orientation/consciousness: patient oriented x3 HEENT Head: Yes normocephalic Ears: external ears normal and TM abnormal with fluid behind the TM General nose exam: Normal nasal mucous membranes and turbinates present Face and sinus: Yes sinuses nontender Mouth: moist mucous membranes Resp Effort & Inspection: normal respiratory effort, able to speak in complete sentences and Actively coughing Auscultation: no crackles, no rales, rhonchi and wheezes Cardio Heart sounds: S1 normal heart sound present and S2 normal heart sound present Neuro General: patient oriented x3 Office Procedures Nebulizer Treatment Nebulizer Treatment [id number]/[id number] RX initial, or Nebulizer Subsequent Treatment Office Meds ipratropium 0.5 mg-albuterol 3 mg (2.5 mg base)/3 mL nebulization soln Performing Provider: Kellie Conn NP Performing Location: [facility] Administered by: Kellie Conn NP on 10/13/24 14:35 Dose Route Admin Location Dispensed Lot Number Expiration Date [facility] Paving [employer] Installer 3 mL inhalation 3 mL [id number] 11/11/25 1393-5905-09 MYLAN Assessment & Plan Assessment & Plan (1) Cough: Code(s): R05.9 - Cough, unspecified Qualifiers: Cough type: acute Qualified Code(s): R05.1 - Acute cough Plan: Neb Treatment in office Ordered SARs Ordered Prednisone (2) Wheezing on auscultation: Code(s): R06.2 - Wheezing Plan: Neb Treatment in office Ordered SARs Ordered Prednisone Orders: Orders SARS-CoV2/FLU/RSV Today J06.9 - Acute upper respiratory infection, unspecified AMB Nebulizer Treatment Today R05.9 - Cough, unspecified, R06.2 - Wheezing Medications: New ipratropium-albuterol 0.5 mg-3 mg(2.5 mg base)/3 mL 3 mL inhalation ONCE 3 mL 0RF R05.9 - Cough, unspecified, R06.2 - Wheezing prednisone 50 mg PO DAILY 5 days 5 tabs 0RF R05.1 - Acute cough, R06.2 - Wheezing benzonatate 100 mg PO TID 90 caps 0RF R05.1 - Acute cough Coding Level of Care Code Est Pt Level 4 (93436) Diagnoses Acute cough R05.1 Cough type: acute Wheezing on auscultation R06.2 CPT Codes Nebulizer Treatment - Nebulizer Treatment, initial or subsequent: [id number]/MDI RX initial, or Nebulizer Subsequent Treatment ([id number]) Time Spent (min) 20
[2024-10-13 13:36] VITALS: BP 116/70; PULSE 80; TEMP 36.6; O2SAT 97
== END 2024-10-13 14:47 | disposition home or self-care (01) ==
PROVIDERS: PCP Internal Medicine; Visit Provider Nurse Practitioner Family
DX: R06.2 Wheezing (principal); R05.9 Cough, unspecified; R05.1 Acute cough

== ENCOUNTER 2024-10-13 13:33 | Outpatient (REF) | payer MEDICARE, SELFPAY ==
[2024-10-13 17:34] LABS: Influenza A PCR NEGATIVE (Negative); Influenza B PCR NEGATIVE (Negative); Resp Syncy Virus RNA Qual PCR POSITIVE (Negative); SARS COV2 PCR INHOUSE NEGATIVE (Negative)
== END 2024-10-13 13:34 | disposition home or self-care (01) ==
LOC: HO.LAB 13:33
PROVIDERS: PCP Internal Medicine; Visit Provider Nurse Practitioner Family
DX: J06.9 Acute upper respiratory infection, unspecified (principal); R05.1 Acute cough; R06.2 Wheezing
CPT/HCPCS: 0241U; 94640; 99212

== ENCOUNTER 2024-10-18 13:59 | Outpatient (AMB) | payer MEDICARE, SELFPAY ==
[2024-10-18 15:07] VITALS: BP 138/80; PULSE 71; TEMP 36.5; O2SAT 97; BMI 30.7
--- NOTE | 2024-10-18 15:07 | AM.OFFWIN_ITS ---
Intake Vital Signs 10/18/24 15:07 Height 5 ft 4 in Weight 179 lb BMI 30.7 BP 138/80 Blood Pressure Location Lt brachial Position Sitting Pulse 71 Pulse Source Pulse Oximeter Temp 97.7 F Temp Source Oral Pulse Oximetry (%) 97 Oxygen Delivery Method Room Air Intake Visit Reasons: EP Respiratory/not better Intake Note: Pt is here today for a walk in visit after being seen here on 10/14/24. Pt states that she tested positive for RSV and she was prescribed Prednisone which she finished. Pt states that she is still not feeling good, cough chest congesgtion and tightness. Patient Tobacco Use Status: Former Tobacco user Allergies seafood Allergy (Unknown, Uncoded 10/18/24 15:12) Unknown HPI HPI Comments History of Present Illness Details This is an 83-year-old female with a past medical history of gastroesophageal reflux disease presenting for evaluation after being diagnosed with RSV on October 13, 2023. Patient states that her symptoms started approximately 10 days ago with a cough that is mostly improved at this time. Patient states that she continues to have some sinus congestion with rhinorrhea. Patient has completed her course of prednisone with positive results. She denies having any new fevers, chills or shortness for breath. [facility] Medical History (Updated 10/18/24 @ 15:54 by Juany Bauman PA-C) Cough Wheezing on auscultation Vitamin D deficiency Dry mouth Annual physical exam Hoarseness Obesity Nonalcoholic hepatosteatosis Hyperglycemia Osteoarthritis Tinnitus Surgical History H/O colonoscopy History of hysterectomy Hx of cholecystectomy Family History Father Cancer Mother Lymphoma Cancer Brother Oral cancer Sister Myeloma Breast cancer Brother Heart problem Cancer Brother Lung cancer Heart problem Social History Housing: Apartment Alcohol intake: current Alcohol intake frequency: holidays/special occasions only Patient Tobacco Use Status: Former Tobacco user e-Cigarette/Vaping Use: Never Used service: No Current occupational status: retired Cognitive needs: No Hearing needs: No Vision needs: Yes Review of Systems Const All systems reviewed & are unremarkable except as noted in HPI and below Denies headache(s) Eyes Reports no additional complaints ENT Reports no additional complaints, Denies headache(s) and Reports nasal congestion Card Reports no additional complaints Resp Reports cough and Reports wheezing GI Reports no additional complaints Reports no additional complaints Musc Reports no additional complaints Skin/Breast Reports system reviewed and no additional complaints, except as documented Neuro Reports no additional complaints and Denies headache(s) Psych Reports no additional complaints Endo Reports no additional complaints Oswaldo/Lymph Reports no additional complaints Aller/Immun Reports no additional complaints and Reports wheezing Physical Exam Vital Signs: Last Vital Signs Temp 97.7 F 10/18/24 15:07 Pulse 71 10/18/24 15:07 BP 138/80 10/18/24 15:07 Pulse Ox 97 10/18/24 15:07 Oxygen Delivery Method Room Air 10/18/24 15:07 BMI result Body Mass Index 30.7 Patient is afebrile and is not hypoxic. Const General: cooperative and healthy appearing Nutritional Appearance: average body habitus Orientation/consciousness: patient oriented x3 Limitations: no limitations HEENT Head: Yes normal to inspection and Yes normocephalic Ears: hearing grossly normal bilaterally, external ears normal, TM's normal bilaterally and EAC's normal General nose exam: Normal external nose present Face and sinus: Yes normal facial exam Mouth: Normal oral and palatal mucosa present and moist mucous membranes Throat: Yes posterior oropharynx normal Eyes General: appearance normal, both eyes and all related structures Neck Lymphatic: no lymphadenopathy noted Resp Effort & Inspection: normal respiratory effort Auscultation: wheezes lower bilaterally Cardio Rate: regular rate Rhythm: regular rhythm Neuro General: patient oriented x3 Psych Appearance: grossly normal Mental Status: mental status grossly normal Insight: Good insight present (Psych) Judgement: Good judgement present (Psych) Assessment & Plan Assessment & Plan (1) RSV (acute bronchiolitis due to respiratory syncytial virus): Comment: Patient is evaluated and her vital signs are reviewed. Patient has bilateral wheezes at the bases however is not tachypneic, febrile or tachycardic. Patient is provided reassurance. Code(s): J21.0 - Acute bronchiolitis due to respiratory syncytial virus Plan: Mucinex OTC daily with increase clear fluids, hot tea with honey, follow up with primary care physician on Thursday as previously scheduled. Imaging deferred. Coding Level of Care Code Est Pt Level 3 (56915) Diagnoses RSV (acute bronchiolitis due to respiratory syncytial virus) J21.0 Time Spent (min) 25
== END 2024-10-18 15:54 | disposition home or self-care (01) ==
PROVIDERS: PCP Internal Medicine; Visit Provider Physician Assistant
DX: J21.0 Acute bronchiolitis due to respiratory syncytial virus (principal)

== ENCOUNTER → 2024-10-21 07:52 | Outpatient (BNVA) | payer OTHER, SELFPAY | PROVIDERS: PCP Internal Medicine; Visit Provider Internal Medicine | DX: J21.0 Acute bronchiolitis due to respiratory syncytial virus (principal) | CPT/HCPCS: 96127; 99212 ==

== ENCOUNTER → 2024-10-21 07:52 | Outpatient (AMB) | payer MEDICARE, SELFPAY ==
--- NOTE | 2024-10-21 08:07 | A.OFFPC_ITS ---
Vital Signs 10/21/24 08:07 Height 5 ft 4 in Weight 172 lb BMI 29.5 BP 110/74 Blood Pressure Location Rt brachial Position Sitting Respiration 18 Pulse 78 Pulse Source Pulse Oximeter Temp 98.4 F Temp Source Oral Pulse Oximetry (%) 97 Oxygen Delivery Method Room Air Intake Visit Reasons: Follow up after being seen in walk in clinic twice Allergies seafood Allergy (Unknown, Uncoded 10/21/24 08:10) Unknown Tobacco use date assessed: 10/21/24 Fall risk assessment: No Falls in past year Last assessed Fall Risk: 10/21/24 Dental Screening Dental Screen Date: 10/21/24 Did you have a dental visit in the last 12 months?: Yes Did you have a dental problem in the last 6 months where you did not have access to dental care?: No Was dental information given to patient?: Patient has dentist HPI Follow up after being seen in walk in clinic twice HPI Details Pt presents for f/u Urgent Care visit for RSV infection. She was treated with prednisone cough medication. Patient is feeling better cough improved significantly she is still complains of some chest congestion but no fever chills shortness or breath pleurisy. [facility] Medical History Cough Wheezing on auscultation Vitamin D deficiency Dry mouth Annual physical exam Hoarseness Obesity Nonalcoholic hepatosteatosis Hyperglycemia Osteoarthritis Tinnitus Surgical History H/O colonoscopy History of hysterectomy Hx of cholecystectomy Family History Father Cancer Mother Lymphoma Cancer Brother Oral cancer Sister Myeloma Breast cancer Brother Heart problem Cancer Brother Lung cancer Heart problem Social History Housing: Apartment Alcohol intake: current Alcohol intake frequency: holidays/special occasions only Patient Tobacco Use Status: Former Tobacco user e-Cigarette/Vaping Use: Never Used service: No Current occupational status: retired Cognitive needs: No Hearing needs: No Vision needs: Yes Questionnaire PHQ-9 Over the last 2 weeks, how often have you been bothered by any of the following problems? 1. Little interest or pleasure in doing things: not at all 2. Feeling down, depressed, or hopeless: not at all 3. Trouble falling or staying asleep, or sleeping too much: not at all 4. Feeling tired or having little energy: not at all 5. Poor appetite or overeating: not at all 6. Feeling bad about yourself - or that you are a failure or have let yourself or your family down: not at all 7. Trouble concentrating on things, such as reading the newspaper or watching television: not at all 8. Moving or speaking so slowly that other people could have noticed. Or the opposite - being so fidgety or restless that you have been moving around a lot more than usual: not at all 9. Thoughts that you would be better off or of hurting yourself in some way: not at all Total score: 0 Depression Screening Interpretation: Negative Depression Screening Done: Yes 02905 - PHQ-9 Billing: Yes Source: Developed by Drs. Jean Tineo, Jannette Portillo, Devonte Edmonds and colleagues, with an educational callie from [employer]. Thrive Questionnaire Date Thrive assessed: 10/21/24 I am a: Patient What is your living situation today?: I have a steady place to live Within the past 12 months, did the food you bought not last and you didn't have the money to get more?: Often true Within the past 12 months, did you worry whether your food would run out before you got money to buy more?: Never true Do you have trouble paying for medicines?: No Do you have trouble getting transportation to medical appointments?: No Do you have trouble paying your heating and electricity bill?: No Do you have trouble taking care of your child, family member or friend?: No Do you have trouble with day-to-day activities such as bathing, preparing meals, shopping, managing finances, etc.?: No Are you currently unemployed and looking for a job?: No Are you interested in more education?: No Please select the resources that you would like help with: None Currently or been in a relationship where the following occur: No concerns reported THRIVE Score: 1 AUDIT C Alcohol Use Questionnaire (AUDIT-C) 1. How often do you have a drink containing alcohol?: 2-4 times a month 2. How many drinks containing alcohol do you have on a typical day when you are drinking?: 1 or 2 3. How often do you have six or more drinks on one occasion?: Never Total Score: 2 BISI-7 AMB Questionnaire BISI-7 Date BISI - 7 assessed: 10/21/24 Feeling nervous, anxious, or on edge: 0 = Not at all Not being able to stop or control worryin = Not at all Worrying too much about different things: 0 = Not at all Trouble relaxin = Not at all Being so restless that it is hard to sit still: 0 = Not at all Becoming easily annoyed or irritable: 0 = Not at all Feeling afraid as if something awful might happen: 0 = Not at all Total BISI-7 score (0-4 normal; 5-9 mild; 10-14 moderate; 15-21 severe): 0 Source: Developed by Drs. Jean Tineo, Jannette Portillo, Devonte Edmonds and colleagues, with an educational callie from [employer]. BISI-7 Assessment Billing BISI-7 Assessment Tool: BISI-7 Assessment 04181 Review of Systems Const All systems reviewed & are unremarkable except as noted in HPI and below ENT Reports no additional complaints Card Reports no additional complaints Resp Reports no additional complaints GI Reports no additional complaints Physical exam (Primary Care) Vital Signs: Last Vital Signs Temp 98.4 F 10/21/24 08:07 Pulse 78 10/21/24 08:07 Resp 18 10/21/24 08:07 BP 110/74 10/21/24 08:07 Pulse Ox 97 10/21/24 08:07 Oxygen Delivery Method Room Air 10/21/24 08:07 BMI result Body Mass Index 29.5 Tobacco/Smoking Status: Tobacco use Status Tobacco use date assessed 10/21/24 10/21/24 08:13 Patient Tobacco Use Status Former Tobacco user 10/21/24 08:13 e-Cigarette/Vaping Use Never Used 10/21/24 08:13 PHQ-9: PHQ-9 Score PHQ-9: Total score 0 10/21/24 08:13 Depression Screening Interpretation: Negative Thrive Assessment: Date of Thrive Assessment Date Thrive assessed 10/21/24 10/21/24 08:13 Currently or been in a relationship where the following occur: No concerns reported Const General: no acute distress HENMT Head: Yes normal to inspection Throat: Yes posterior oropharynx normal Neck Neck: Yes no lymphadenopathy and Yes supple Resp Effort & Inspection: normal respiratory effort Auscultation: clear to auscultation bilaterally Cardio Rhythm: regular rhythm Heart sounds: S1 normal heart sound present and S2 normal heart sound present GI Inspection: Yes normal to inspection Coding Level of Care Code Est Pt Level 3 (46714) Diagnoses RSV (acute bronchiolitis due to respiratory syncytial virus) J21.0 Additional Codes BISI-7 Assessment Billing - BISI-7 Assessment Tool: BISI-7 Assessment 74947 ([id number]) PHQ-9 - 61286 - PHQ-9 Billing: Yes ([id number]) Assessment & Plan Assessment & Plan (1) RSV (acute bronchiolitis due to respiratory syncytial virus): Code(s): J21.0 - Acute bronchiolitis due to respiratory syncytial virus Category: Medical Plan: Continue supportive care
== END | disposition home or self-care (01) ==
PROVIDERS: PCP Internal Medicine; Visit Provider Internal Medicine

== ENCOUNTER 2025-02-23 08:31 | Outpatient (REF) | payer OTHER, SELFPAY ==
[2025-02-23 10:22] LABS: Estimated Average Glucose 123 mg/dL; Hemoglobin A1c % 5.9 % (<6.0); Total Hemoglobin (HGBA1C) 3886.6382 umol/L
[2025-02-23 13:40] LABS: Alanine Aminotransferase 27 U/L (0-31); Alkaline Phosphatase 63 U/L (39-117); Anion Gap 11 (12-20); Aspartate Amino Transferase 33 U/L (5-31); Bilirubin Total 0.6 mg/dL (0.0-1.0); Blood Urea Nitrogen 11 mg/dL (9-16); Calcium 9.6 mg/dL (8.4-10.2); Carbon Dioxide 30 mmol/L (22-29); Chloride 106 mmol/L (96-108); Estimated Glomerular Filt Rate > 60; Glucose Fasting 116 mg/dL (60-99); Potassium 4.4 mmol/L (3.3-5.1); Sodium 143 mmol/L (135-145); Total Protein 7.3 g/dL (6.5-8.0)
[2025-02-23 14:00] LABS: TSH reflex Free T4 1.92 uIU/mL (0.32-4.0)
== END 2025-02-23 08:32 | disposition home or self-care (01) ==
LOC: HO.HMGCLDS 08:31
PROVIDERS: PCP Internal Medicine; Visit Provider Internal Medicine
DX: E66.9 Obesity, unspecified (principal); R73.9 Hyperglycemia, unspecified
CPT/HCPCS: 36415; 80053; 83036; 84443

== ENCOUNTER 2025-03-02 10:28 | Outpatient (AMB) | payer MEDICARE, SELFPAY ==
[2025-03-02 10:56] VITALS: BP 136/78; PULSE 63; RESP 18; TEMP 36.7; O2SAT 97; BMI 29.2
--- NOTE | 2025-03-02 10:56 | A.OFFPC_ITS ---
Vital Signs 03/02/25 10:56 Height 5 ft 4 in Weight 170 lb BMI 29.2 BP 136/78 Blood Pressure Location Lt brachial Position Sitting Respiration 18 Pulse 63 Pulse Source Pulse Oximeter Temp 98.0 F Temp Source Oral Pulse Oximetry (%) 97 Oxygen Delivery Method Room Air Intake Visit Reasons: 6m follow up Intake Note: Pt is here today for 6 months follow up visit. Allergies seafood Allergy (Unknown, Uncoded 03/02/25 10:57) Unknown Medication List - Last Reconciled 03/02/25 by Jacqueline Diamond MD cholecalciferol (vitamin D3) 25 mcg PO DAILY dexamethasone 1.5 mg PO QID famotidine (Pepcid) 20 mg PO DAILY hydrocortisone valerate 0.2% 1 appl topical QID PRN metronidazole 0.75% 1 appl topical DAILY propylene glycol 0.6% (Systane Balance) 1 drp ophthalmic (eye) DAILY PRN vitamins A,C,U-gwvw-xlvsgp 4,296 mcg-226 mg-90 mg (PreserVision AREDS) 1 cap PO DAILY Tobacco use date assessed: 03/02/25 Fall risk assessment: No Falls in past year Last assessed Fall Risk: 03/02/25 Dental Screening Dental Screen Date: 10/21/24 HPI 6m follow up HPI Details Pt presents for f/u GERD, better on Pepcid. Patient has been following ADA diet trying to increase physical activity and lost 10 lb since last visit. [facility] Medical History Cough Wheezing on auscultation Vitamin D deficiency Dry mouth Annual physical exam Hoarseness Obesity Nonalcoholic hepatosteatosis Hyperglycemia Osteoarthritis Tinnitus Surgical History H/O colonoscopy History of hysterectomy Hx of cholecystectomy Family History Father Cancer Mother Lymphoma Cancer Brother Oral cancer Sister Myeloma Breast cancer Brother Heart problem Cancer Brother Lung cancer Heart problem Social History Housing: Apartment Alcohol intake: current Alcohol intake frequency: holidays/special occasions only Patient Tobacco Use Status: Former Tobacco user e-Cigarette/Vaping Use: Never Used service: No Current occupational status: retired Cognitive needs: No Hearing needs: No Vision needs: Yes Questionnaire Thrive Questionnaire Date Thrive assessed: 10/21/24 I am a: Patient What is your living situation today?: I have a steady place to live Within the past 12 months, did the food you bought not last and you didn't have the money to get more?: Often true Within the past 12 months, did you worry whether your food would run out before you got money to buy more?: Never true Do you have trouble paying for medicines?: No Do you have trouble getting transportation to medical appointments?: No Do you have trouble paying your heating and electricity bill?: No Do you have trouble taking care of your child, family member or friend?: No Do you have trouble with day-to-day activities such as bathing, preparing meals, shopping, managing finances, etc.?: No Are you currently unemployed and looking for a job?: No Are you interested in more education?: No Please select the resources that you would like help with: None Currently or been in a relationship where the following occur: No concerns reported THRIVE Score: 1 BISI-7 AMB Questionnaire BISI-7 Date BISI - 7 assessed: 10/21/24 Source: Developed by Drs. Jean Tineo, Jannette Portillo, Devonte Edmonds and colleagues, with an educational callie from [employer]. Review of Systems Const All systems reviewed & are unremarkable except as noted in HPI and below Eyes Reports no additional complaints ENT Reports no additional complaints Card Reports no additional complaints Resp Reports no additional complaints GI Reports no additional complaints Reports no additional complaints Physical exam (Primary Care) Vital Signs: Last Vital Signs Temp 98.0 F 03/02/25 10:56 Pulse 63 03/02/25 10:56 Resp 18 03/02/25 10:56 BP 136/78 03/02/25 10:56 Pulse Ox 97 03/02/25 10:56 Oxygen Delivery Method Room Air 03/02/25 10:56 BMI result Body Mass Index 29.2 Tobacco/Smoking Status: Tobacco use Status Tobacco use date assessed 03/02/25 03/02/25 11:01 Patient Tobacco Use Status Former Tobacco user 03/02/25 11:01 e-Cigarette/Vaping Use Never Used 03/02/25 11:01 Thrive Assessment: Date of Thrive Assessment Date Thrive assessed 10/21/24 03/02/25 11:01 Currently or been in a relationship where the following occur: No concerns reported Const General: no acute distress HENMT Head: Yes normal to inspection Face and sinus: Yes normal facial exam Eyes General: appearance normal, both eyes and all related structures Resp Effort & Inspection: normal respiratory effort Auscultation: clear to auscultation bilaterally Cardio Rhythm: regular rhythm Heart sounds: S1 normal heart sound present and S2 normal heart sound present Coding Level of Care Code Est Pt Level 4 (08713) Diagnoses Hyperglycemia R73.9 GERD (gastroesophageal reflux disease) K21.9 Nonalcoholic hepatosteatosis K76.0 Assessment & Plan Assessment & Plan (1) Hyperglycemia: Code(s): R73.9 - Hyperglycemia, unspecified Category: Medical Plan: A1c is 5.9, continue ADA diet increase physical activity weight loss discussed with the patient follow-up in 6 months with a fasting labs before (2) GERD (gastroesophageal reflux disease): Code(s): K21.9 - Gastro-esophageal reflux disease without esophagitis Category: Medical Plan: Continue anti GERD diet and famotidine (3) Nonalcoholic hepatosteatosis: Code(s): K76.0 - Fatty (change of) liver, not elsewhere classified Category: Medical Plan: Continue ADA diet decrease caloric intake increase physical activity weight loss discussed with the patient Orders: Orders Comprehensive [place]. Panel Fast 6 Months R73.9 - Hyperglycemia, unspecified, Z00.00 - Encounter for general adult medical examination without abnormal findings Complete Blood Count Auto Diff 6 Months R73.9 - Hyperglycemia, unspecified, Z00.00 - Encounter for general adult medical examination without abnormal findings Hemoglobin A1c 6 Months R73.9 - Hyperglycemia, unspecified, Z00.00 - Encounter for general adult medical examination without abnormal findings Lipid Panel 6 Months R73.9 - Hyperglycemia, unspecified, Z00.00 - Encounter for general adult medical examination without abnormal findings Referrals Speech and Hearing Referral H91.90 - Unspecified hearing loss, unspecified ear
== END 2025-03-02 11:50 | disposition home or self-care (01) ==
LOC: HO.HMCC 10:29
PROVIDERS: PCP Internal Medicine; Visit Provider Internal Medicine
DX: R73.9 Hyperglycemia, unspecified (principal); K21.9 Gastro-esophageal reflux disease without esophagitis; K76.0 Fatty (change of) liver, not elsewhere classified

== ENCOUNTER → 2025-03-02 10:28 | Outpatient (BNVA) | payer OTHER, SELFPAY | PROVIDERS: PCP Internal Medicine; Visit Provider Internal Medicine | DX: K21.9 Gastro-esophageal reflux disease without esophagitis (principal); K76.0 Fatty (change of) liver, not elsewhere classified; R73.9 Hyperglycemia, unspecified | CPT/HCPCS: 99212 ==

== ENCOUNTER 2025-06-29 09:21 | Outpatient (AMB) | payer OTHER, SELFPAY ==
--- NOTE | 2025-06-29 09:26 | A.OFFPC_ITS ---
Vital Signs 06/29/25 09:27 Height 5 ft 4 in Weight 174 lb BMI 29.9 BP 128/84 Blood Pressure Location Lt brachial Position Sitting Respiration 19 Pulse 71 Pulse Source Pulse Oximeter Temp 97.7 F Temp Source Oral Pulse Oximetry (%) 97 Oxygen Delivery Method Room Air Intake Visit Reasons: Discuss tongue biopsy Intake Note: Pt is here today for a follow up visit to discuss Pathology report from February of 2024. Allergies seafood Allergy (Unknown, Uncoded 06/29/25 09:31) Unknown Medication List - Last Reconciled 06/29/25 by Jacqueline Diamond MD cholecalciferol (vitamin D3) 25 mcg PO DAILY dexamethasone 1.5 mg PO QID famotidine (Pepcid) 20 mg PO DAILY hydrocortisone valerate 0.2% 1 appl topical QID PRN metronidazole 0.75% 1 appl topical DAILY propylene glycol 0.6% (Systane Balance) 1 drp ophthalmic (eye) DAILY PRN vitamins A,C,S-saqw-ccgyrh 4,296 mcg-226 mg-90 mg (PreserVision AREDS) 1 cap PO DAILY Tobacco use date assessed: 06/29/25 Fall risk assessment: No Falls in past year Last assessed Fall Risk: 06/29/25 Dental Screening Dental Screen Date: 10/21/24 HPI Discuss tongue biopsy HPI Details Patient presents complaining of persistent growth on the tip of her tongue for 2 years. Patient had negative biopsy 2 years ago by oral surgeon. She has followed-up with oral surgeon who recommended a repeated biopsy. Patient denies any change in the tongue growth for the last 2 years. [facility] Medical History Cough Wheezing on auscultation Vitamin D deficiency Dry mouth Annual physical exam Hoarseness Obesity Nonalcoholic hepatosteatosis Hyperglycemia Osteoarthritis Tinnitus Surgical History H/O colonoscopy History of hysterectomy Hx of cholecystectomy Family History Father Cancer Mother Lymphoma Cancer Brother Oral cancer Sister Myeloma Breast cancer Brother Heart problem Cancer Brother Lung cancer Heart problem Social History Housing: Apartment Alcohol intake: current Alcohol intake frequency: holidays/special occasions only Patient Tobacco Use Status: Former Tobacco user e-Cigarette/Vaping Use: Never Used service: No Current occupational status: retired Cognitive needs: No Hearing needs: No Vision needs: Yes Questionnaire PHQ-9 Over the last 2 weeks, how often have you been bothered by any of the following problems? 1. Little interest or pleasure in doing things: not at all 2. Feeling down, depressed, or hopeless: not at all 3. Trouble falling or staying asleep, or sleeping too much: not at all 4. Feeling tired or having little energy: not at all 5. Poor appetite or overeating: not at all 6. Feeling bad about yourself - or that you are a failure or have let yourself or your family down: not at all 7. Trouble concentrating on things, such as reading the newspaper or watching television: not at all 8. Moving or speaking so slowly that other people could have noticed. Or the opposite - being so fidgety or restless that you have been moving around a lot more than usual: not at all 9. Thoughts that you would be better off or of hurting yourself in some way: not at all Total score: 0 Depression Screening Interpretation: Negative Depression Screening Done: Yes Source: Developed by Drs. Jean Tineo, Jannette Portillo, Devonte Edmonds and colleagues, with an educational callie from [employer]. Thrive Questionnaire Date Thrive assessed: 10/21/24 I am a: Patient What is your living situation today?: I have a steady place to live Within the past 12 months, did the food you bought not last and you didn't have the money to get more?: Often true Within the past 12 months, did you worry whether your food would run out before you got money to buy more?: Never true Do you have trouble paying for medicines?: No Do you have trouble getting transportation to medical appointments?: No Do you have trouble paying your heating and electricity bill?: No Do you have trouble taking care of your child, family member or friend?: No Do you have trouble with day-to-day activities such as bathing, preparing meals, shopping, managing finances, etc.?: No Are you currently unemployed and looking for a job?: No Are you interested in more education?: No Please select the resources that you would like help with: None Currently or been in a relationship where the following occur: No concerns reported THRIVE Score: 1 BISI-7 AMB Questionnaire BISI-7 Date BISI - 7 assessed: 10/21/24 Feeling nervous, anxious, or on edge: 0 = Not at all Not being able to stop or control worryin = Not at all Worrying too much about different things: 0 = Not at all Trouble relaxin = Not at all Being so restless that it is hard to sit still: 0 = Not at all Becoming easily annoyed or irritable: 0 = Not at all Feeling afraid as if something awful might happen: 0 = Not at all Total BISI-7 score (0-4 normal; 5-9 mild; 10-14 moderate; 15-21 severe): 0 Source: Developed by Drs. Jean Tineo, Jannette Portillo, Devonte Edmonds and colleagues, with an educational callie from [employer]. Review of Systems Const All systems reviewed & are unremarkable except as noted in HPI and below Eyes Reports no additional complaints ENT Reports no additional complaints Card Reports no additional complaints Resp Reports no additional complaints GI Reports no additional complaints Reports no additional complaints Physical exam (Primary Care) Vital Signs: Last Vital Signs Temp 97.7 F 06/29/25 09:27 Pulse 71 06/29/25 09:27 Resp 19 06/29/25 09:27 BP 128/84 06/29/25 09:27 Pulse Ox 97 06/29/25 09:27 Oxygen Delivery Method Room Air 06/29/25 09:27 BMI result Body Mass Index 29.9 Tobacco/Smoking Status: Tobacco use Status Tobacco use date assessed 06/29/25 06/29/25 09:32 Patient Tobacco Use Status Former Tobacco user 06/29/25 09:27 e-Cigarette/Vaping Use Never Used 06/29/25 09:27 PHQ-9: PHQ-9 Score PHQ-9: Total score 0 06/29/25 09:32 Depression Screening Interpretation: Negative Thrive Assessment: Date of Thrive Assessment Date Thrive assessed 10/21/24 06/29/25 09:27 Currently or been in a relationship where the following occur: No concerns reported Const General: no acute distress HENMT Head: Yes normal to inspection Face and sinus: Yes normal facial exam Mouth: Normal oral and palatal mucosa present and tongue abnormal (Raised erythematous papule on the tip of the tongue no ulceration) Throat: Yes posterior oropharynx normal Neck Neck: Yes no lymphadenopathy Resp Effort & Inspection: normal respiratory effort Auscultation: clear to auscultation bilaterally Cardio Rhythm: regular rhythm Heart sounds: S1 normal heart sound present and S2 normal heart sound present Coding Level of Care Code Est Pt Level 3 (46610) Diagnoses 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 She will follow-up with the oral surgeon (2) GERD (gastroesophageal reflux disease): Code(s): K21.9 - Gastro-esophageal reflux disease without esophagitis Category: Medical Plan: Continue H2 leta
[2025-06-29 09:27] VITALS: BP 128/84; PULSE 71; RESP 19; TEMP 36.5; O2SAT 97; BMI 29.9
== END 2025-06-29 13:47 | disposition home or self-care (01) ==
LOC: HO.HMCC 09:22
PROVIDERS: PCP Internal Medicine; Visit Provider Internal Medicine
DX: Q38.3 Other congenital malformations of tongue (principal); K21.9 Gastro-esophageal reflux disease without esophagitis

== ENCOUNTER → 2025-06-29 09:21 | Outpatient (BNVA) | payer OTHER, SELFPAY | PROVIDERS: PCP Internal Medicine; Visit Provider Internal Medicine | DX: K21.9 Gastro-esophageal reflux disease without esophagitis (principal); Q38.3 Other congenital malformations of tongue | CPT/HCPCS: 96127; 99212 ==